=== PATIENT | male | born 1960 | race Caucasian/White ===

== ENCOUNTER → 2017-09-19 | Outpatient (CLI) | payer BC ==
--- NOTE | 2017-09-19 09:16 | RAD ---
EXAM DESCRIPTION: Wrist,Right 3 Views CLINICAL HISTORY: 56 years Male, PAIN IN RIGHT WRIST COMPARISON: None. TECHNIQUE: AP lateral and oblique images right wrist FINDINGS: Marked narrowing of the radial scaphoid joint with marginal spurs. Question of a 7 mm loose body on the radial aspect of the distal radius abutting the scaphoid. Widening of the scapholunate joint. Narrowing and sclerosis of the scaphoid joints with the trapezium trapezoid and capitate bone. Narrowing of the lunate capitate joints and the lunate hamate joints. No fractures are seen. Thumb carpometacarpal joint is maintained. 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 Advanced arthrosis. Scaphoid joint. Possible 7 mm loose body. Widening of the scapholunate joint. Consider MR of the wrist to evaluate the scapholunate ligament. Electronically signed by: Ion Hoang MD 09/19/2017 9:15 AM [facility]
== END | disposition home or self-care (01) ==
LOC: RAD 07:52
PROVIDERS: ATTEND Orthopaedic Surgery
DX: M25.531 Pain in right wrist (principal)

== ENCOUNTER → 2018-02-06 | Outpatient (CLI) | payer BC | LOC: GMAJ 11:25 | PROVIDERS: ATTEND Family Medicine | DX: Z00.01 Encounter for general adult medical examination with abnormal findings (principal); E29.1 Testicular hypofunction ==

== ENCOUNTER → 2018-02-08 | Outpatient (CLI) | payer BC ==
--- NOTE | 2018-02-08 17:05 | US ---
EXAM DESCRIPTION: Abdomen,Complete CLINICAL HISTORY: ELEVATED LFT'S COMPARISON: None TECHNIQUE: Real-time sonographic images of the abdomen are obtained FINDINGS: Pancreas is unremarkable. The right lobe of the liver measures 15.6cm. The liver is diffusely homogeneous and normal in echogenicity. No focal hepatic mass is seen. The gallbladder is normally distended and free of abnormal internal echogenicities. No gallbladder wall thickening or pericholecystic fluid is seen. The common bile duct measures five mm in greatest diameter. The right kidney measures 10.4 cm. 4.4 x 4.2 cm interpolar simple cyst. The left kidney measures 11.4 cm. 0.9 x 0.8 cm interpolar cyst. There is also a 5 mm nonobstructing calculus in the left kidney. Both kidneys show normal renal cortical echogenicity. No hydronephrosis is seen. The spleen measures 9.7 cm. Visualized IVC and abdominal aorta are within normal limits. IMPRESSION: 1. Bilateral simple renal cysts. 2. Nonobstructing 5 mm left renal calculus. 3. Otherwise, unremarkable complete abdominal ultrasound. Electronically signed by: Vahid Moore MD 02/08/2018 5:04 PM CDT
== END ==
LOC: US 07:48
PROVIDERS: ATTEND Family Medicine
DX: R94.5 Abnormal results of liver function studies (principal); N28.1 Cyst of kidney, acquired; N20.0 Calculus of kidney

== ENCOUNTER → 2018-05-22 | Outpatient (CLI) | payer BC | LOC: GMAL 11:22 | PROVIDERS: ATTEND Family Medicine | DX: E55.9 Vitamin D deficiency, unspecified (principal); R94.5 Abnormal results of liver function studies ==

== ENCOUNTER → 2019-02-26 | Outpatient (CLI) | payer BC | LOC: GMAL 10:20 | PROVIDERS: ATTEND Family Medicine | DX: Z00.01 Encounter for general adult medical examination with abnormal findings (principal); E55.9 Vitamin D deficiency, unspecified ==

== ENCOUNTER → 2019-03-12 | Outpatient (CLI) | payer BC ==
--- NOTE | 2019-03-12 13:49 | US ---
EXAM DESCRIPTION: Abdomen,Complete: Ultrasound. CLINICAL HISTORY: Left upper quadrant pain COMPARISON: Abdominal ultrasound 02/08/2018. TECHNIQUE: Transabdominal scannin-dimensional and Doppler modes. FINDINGS: Gallbladder: Surgically removed. No free fluid. Common bile duct: 3.9 mm normal caliber. Liver: Long axis of the right lobe 13.4 cm. Unremarkable. Pancreas: Unremarkable.. Abdominal aorta: Normal caliber from the proximal segment to the distal bifurcation. IVC: visualized; normal caliber. Spleen normal echogenicity; long axis measurement is 10.3 cm. Right kidney: Long axis is 11.5 cm. Otherwise unremarkable. Left kidney: Long axis is 11.9 cm. Complex cyst with minimally thickened wilder and internal echoes measuring 1.5 x 1.3 x 0.8 cm in the mid kidney. Nonvascular. Not seen on the prior study. No hydronephrosis or perinephric fluid. No echogenic stones. Some seen on the prior ultrasound is no longer present.. IMPRESSION: 1. Complex 1.5 cm cyst or cystic mass in the left kidney not seen on the prior study. Consider follow-up CT scan without and with IV contrast. Right kidney is unremarkable. 2. Prior cholecystectomy with no free fluid. Liver, common bile duct, pancreas, and spleen are negative. Normal caliber of the abdominal aorta and IVC. Electronically signed by: Ion Hoang MD 03/12/2019 1:47 PM CDT
== END ==
LOC: US 08:29
PROVIDERS: ATTEND Family Medicine
DX: N28.1 Cyst of kidney, acquired (principal); Z90.49 Acquired absence of other specified parts of digestive tract

== ENCOUNTER → 2019-07-11 | Outpatient (CLI) | payer BC ==
--- NOTE | 2019-07-11 11:05 | CT ---
Study: CT abdomen and pelvis. Indication: GENERALIZED ABDOMINAL PAIN Technique: CT of the abdomen and pelvis obtained without intravenous contrast. This exam was performed according to our departmental dose-optimization program, which includes automated exposure control, adjustment of the mA and/or kV according to patient size and/or use of iterative reconstruction technique. Comparison: Ultrasound abdomen March 12, 2019. Findings: Cholecystectomy clips. Lower chest, liver, pancreas, spleen, adrenal glands, and bladder unremarkable. Mild prostatomegaly. 5.5 cm cyst mid right kidney. Questionable 2 tiny low-density left renal lesions, too small to characterize. 2.5 mm central nonobstructing left renal calculus. No hydronephrosis. Acute diverticulitis mid sigmoid colon with moderate surrounding inflammation and small volume free pelvic fluid. No perforation or abscess formation. Stomach, small bowel, and appendix unremarkable. No free air. No pathologically enlarged adenopathy. Surgical clips of the anterior pelvic wall. Degenerative changes of the spine noted. Impression: Acute sigmoid colon diverticulitis without perforation or abscess formation. Suspected 2 tiny left renal lesions. Nonemergent renal sonogram could better evaluate. Tiny nonobstructing left renal calculus. Additional findings as above. Electronically signed by: Glen Rivero MD 07/11/2019 11:04 AM CDT
== END ==
LOC: GMAJS 10:25
PROVIDERS: ATTEND Physician Assistant
DX: K57.32 Diverticulitis of large intestine without perforation or abscess without bleeding (principal); N20.0 Calculus of kidney; N28.9 Disorder of kidney and ureter, unspecified

== ENCOUNTER → 2019-08-23 | Outpatient (CLI) | payer BC | LOC: GMAL 10:24 | PROVIDERS: ATTEND Family Medicine | DX: E55.9 Vitamin D deficiency, unspecified (principal); R94.5 Abnormal results of liver function studies; R73.9 Hyperglycemia, unspecified; Z79.899 Other long term (current) drug therapy ==

== ENCOUNTER → 2019-10-14 | Outpatient (CLI) | payer BC | LOC: GMAL 10:33 | PROVIDERS: ATTEND Family Medicine | DX: Z12.5 Encounter for screening for malignant neoplasm of prostate (principal); Z79.899 Other long term (current) drug therapy ==

== ENCOUNTER → 2019-11-07 | Outpatient (CLI) | payer BC, OTHER ==
--- NOTE | 2019-11-07 13:55 | RAD ---
EXAM DESCRIPTION: Knee,Right 1 or 2 Views CLINICAL HISTORY: 58 years Male, PAIN IN RIGHT KNEE TECHNIQUE: 2 views of the right knee were performed. COMPARISON: None available. FINDINGS: The visualized bones appear well mineralized. No acute fracture or dislocation. Medial tibiofemoral joint space narrowing is noted. The soft tissues appear grossly unremarkable. IMPRESSION: Medial tibiofemoral joint space narrowing. Electronically signed by: Peg Unger MD 11/07/2019 1:54 PM [facility]
--- NOTE | 2019-11-07 13:56 | RAD ---
EXAM DESCRIPTION: Pelvis CLINICAL HISTORY: 58 years Male, PAIN IN RIGHT HIP COMPARISON: None. TECHNIQUE: AP radiograph of the pelvis was performed. FINDINGS: The pelvic ring appears grossly intact on this single AP radiograph. No acute fracture or dislocation. Bilateral sacroiliac joints appear normal. Moderate right and [id number] left hip osteoarthritis. The visualized lumbo-sacral spine demonstrates mild degenerative changes. IMPRESSION: Single AP radiograph of the pelvis demonstrates grossly intact pelvic ring. Moderate right and [id number] left hip osteoarthritis. Electronically signed by: Peg Unger MD 11/07/2019 1:54 PM [facility]
== END ==
LOC: RAD 08:22
PROVIDERS: ATTEND Orthopaedic Surgery
DX: M16.0 Bilateral primary osteoarthritis of hip (principal); M25.861 Other specified joint disorders, right knee

== ENCOUNTER → 2020-02-18 | Outpatient (CLI) | payer OTHER ==
--- NOTE | 2020-02-18 14:42 | US ---
EXAM DESCRIPTION: Carotid Duplex CLINICAL HISTORY: STENOSIS COMPARISON: None Available. TECHNIQUE: Carotid Doppler ultrasound FINDINGS: Mild intimal surface thickening is observed in the carotids. Antegrade flow seen in both vertebral arteries. No acceleration of flow is observed in either carotid system. IMPRESSION: No hemodynamically significant stenosis is detected. Electronically signed by: Russell Olvera MD 02/18/2020 2:41 PM CDT
== END ==
LOC: US 11:15
PROVIDERS: ATTEND Family Medicine
DX: I35.0 Nonrheumatic aortic (valve) stenosis (principal)

== ENCOUNTER → 2020-03-10 | Outpatient (CLI) | payer BC | LOC: GMAL 11:42 | PROVIDERS: ATTEND Family Medicine | DX: M25.50 Pain in unspecified joint (principal); Z79.899 Other long term (current) drug therapy ==